=== PATIENT | female | born 1955 | race Caucasian/White ===

== ENCOUNTER 2016-10-02 14:08 | Emergency (ER) | payer MEDICAID ==
[~2016-10-02] VITALS: Ht 160 cm; Wt 68.0 kg
[~2016-10-02 14:08] MED LIST: BP MEDS; TRAZ-147
[2016-10-02] MEDS ORDERED: KETOROLAC TROMETHAMINE INJ 30 MG/ML VIAL ONE (14:45)
[2016-10-02] MEDS ORDERED: CYCLOBENZAPRINE 10 MG TABLET ONE (14:45)
[2016-10-02] MEDS ORDERED: CYCLOBENZAPRINE 10 MG TABLET PO ONE (15:00)
[2016-10-02] MEDS ORDERED: KETOROLAC TROMETHAMINE INJ 30 MG/ML VIAL IM ONE (15:00)
[2016-10-02 16:07] VITALS: BP 112/70
== END 2016-10-02 16:08 | disposition home or self-care (01) ==
LOC: ER 14:09
DX: R07.89 Other chest pain (principal); F41.9 Anxiety disorder, unspecified; M79.1 Myalgia; K21.9 Gastro-esophageal reflux disease without esophagitis; Z88.8 Allergy status to other drugs, medicaments and biological substances; Z88.2 Allergy status to sulfonamides; F17.210 Nicotine dependence, cigarettes, uncomplicated
CPT/HCPCS: 71010; 93005; 99285; A4606; J1885; Z7610

== ENCOUNTER 2017-08-01 13:36 | Emergency (ER) | payer MEDICAID ==
[~2017-08-01] VITALS: Ht 162.6 cm; Wt 54.4 kg
--- NOTE | 2017-08-01 13:40 | NUR ---
[id number] FROM [facility] FOR ANXIETY, PT IS COMPLAINING OF WEAKNESS, NAD NOTED, VSS, RESP EVEN AND UNLABORED. PT PUT ON HOSPITAL GOWN AND MONITOR, WAITNG FOR MD SADLER.
[2017-08-01 14:20] LABS: BASOPHILS % (AUTO) 0.4 % (0.0-2.0); EOSINOPHILS # (AUTO) 0.1 /CMM (0.0-0.7); EOSINOPHILS % (AUTO) 1.3 % (0.0-6.0); HEMATOCRIT 40 % (33-45); HEMOGLOBIN 13.5 g/dL (11.5-14.8); LYMPHOCYTES # (AUTO) 1.1 /CMM (0.8-4.8); LYMPHOCYTES % (AUTO) 17.7 % (20.0-44.0); MEAN CORPUSCULAR HEMOGLOBIN 33 PG (26.0-33.0); MEAN CORPUSCULAR HGB CONC 34 g/dl (31.0-36.0); MEAN CORPUSCULAR VOLUME 100 fL (82-100); MONOCYTES # (AUTO) 0.5 /CMM (0.1-1.30); MONOCYTES % (AUTO) 8.8 % (2.0-12.0); NEUTROPHILS # (AUTO) 4.5 /CMM (1.8-8.9); NEUTROPHILS % (AUTO) 71.8 % (43.0-81.0); PLATELET COUNT (AUTO) 246 /CMM (150-450); RDW COEFFICIENT OF VARIATION 11.1 (11.5-15.0); RED BLOOD CELL COUNT(AUTO) 4.04 MIL/uL (4.0-5.2); WHITE BLOOD COUNT (AUTO) 6.2 K/uL (4.3-11.0)
[2017-08-01 14:30] LABS: CALCIUM, SERUM 9.8 mg/dL (8.5-10.1); CARBON DIOXIDE 29 mmol/L (21-32); CHLORIDE 99 mmol/L (98-107); GLUCOSE 102 mg/dL (74-106); POTASSIUM 3.6 mmol/L (3.5-5.1); SODIUM SERUM 139 mmol/L (136-145); UREA NITROGEN, BLOOD 26 mg/dL (7-18)
[2017-08-01 14:35] LABS: ALANINE AMINOTRANSFERASE 42 U/L (12-78); ALBUMIN 4.4 g/dL (3.4-5.0); ALCOHOL, BLOOD < 3 mg/dL (0-0); ALKALINE PHOSPHATASE 67 U/L (46-116); ASPARTATE AMINOTRANSFERASE 50 U/L (15-37); BILIRUBIN,DIRECT 0.4 mg/dL (0.0-0.2); BILIRUBIN,TOTAL 0.9 mg/dL (0.2-1.0); TOTAL PROTEIN, SERUM 8.3 g/dL (6.4-8.2)
[2017-08-01 14:36] LABS: ACETAMINOPHEN < 2 ug/ml (10-30); SALICYLATE 0.2 mg/dL (2.8-20.0)
--- NOTE | 2017-08-01 15:44 | NUR ---
LUNCH AT BS
[2017-08-01 16:00] LABS: APPEARANCE,URINE Clear (CLEAR); BILIRUBIN,URINE SMALL (NEGATIVE); BLOOD, URINE Trace-intact Ery/uL (NEGATIVE); COLOR,URINE Yellow (YELLOW); KETONES,URINE 15 (NEGATIVE); LEUKOCYTE ESTERASE ,URINE Small (NEGATIVE); NITRITE, URINE Negative (NEGATIVE); PROTEIN,URINE Trace mg/dl (NEGATIVE); UGLUCOSE Negative (NEGATIVE)
[2017-08-01 16:11] LABS: BACTERIA,URINE Few /HPF (None Seen); MUCUS,URINE Few /LPF (None Seen); SQUAMOUS EPITHELIAL CELL,UR Few /HPF (None Seen)
--- NOTE | 2017-08-01 17:22 | NUR ---
CALLED [facility] FOR PSYCH EVAL ETA 1 HOUR
[2017-08-01 18:31] VITALS: BP 133/82
--- NOTE | 2017-08-01 18:32 | NUR ---
Patient discharged to home in stable condition. Written and verbal after care instructions given. Patient verbalizes understanding of instruction.
== END 2017-08-01 18:32 | disposition home or self-care (01) ==
LOC: ER 13:39
DX: N39.0 Urinary tract infection, site not specified (principal); F41.9 Anxiety disorder, unspecified; R56.9 Unspecified convulsions; I10 Essential (primary) hypertension; K21.9 Gastro-esophageal reflux disease without esophagitis; F32.9 Major depressive disorder, single episode, unspecified; F17.200 Nicotine dependence, unspecified, uncomplicated; Z88.2 Allergy status to sulfonamides; Z88.1 Allergy status to other antibiotic agents; Z88.8 Allergy status to other drugs, medicaments and biological substances
CPT/HCPCS: 36415; 80048; 80076; 80305; 80329; 81001; 85025; 87086; 93005; 99285; A4606; G0480 ×2; Z7610; 81000-TC

== ENCOUNTER 2018-04-24 23:19 | Emergency (ER) | payer MEDICAID, OTHER ==
[~2018-04-24] VITALS: Ht 162.6 cm; Wt 54.4 kg
[~2018-04-24 23:19] MED LIST changes: -TRAZ-147; +TRAZ-214
--- NOTE | 2018-04-24 23:19 | NUR ---
FOUND AT [facility] CALLED BY BYSTANDER FOR [facility], C/O SOB X2 DAYS. PT IS NOTED ANXIOUS AND NOT COOPERATING WITH QUESTIONING. VSS NO ACUTE DISTRESS AT THIS TIME. DISPITE C/O SOB PT HAS BREATHING RATE WNL WITH ADEQUATE CHEST RISE/FALL. SKIN IS INTACT BUT NOTED WITH MANY TAPE PHAN FROM [facility]. WILL CONTINUE TO MONITOR FOR ANY CHANGES DURING THE SHIFT.
--- NOTE | 2018-04-24 23:20 | NUR ---
ER MD BOYD AT BEDSIDE FOR EVAL
[2018-04-24] MEDS ORDERED: LORAZEPAM INJ 2 MG/ML VIAL ONE (23:49)
[2018-04-25] MEDS ORDERED: LORAZEPAM INJ 2 MG/ML VIAL IM ONE
--- NOTE | 2018-04-25 00:04 | NUR ---
URINE/BLOOD SENT TO LAB WITH AGRISCIENCE TEACHER
[2018-04-25 00:31] LABS: APPEARANCE,URINE SL CLOUDY (CLEAR); BILIRUBIN,URINE 1+ (NEGATIVE); BLOOD, URINE NEGATIVE Ery/uL (NEGATIVE); COLOR,URINE DARK YELLO (YELLOW); KETONES,URINE 1+ (NEGATIVE); LEUKOCYTE ESTERASE ,URINE TRACE (NEGATIVE); NITRITE, URINE NEGATIVE (NEGATIVE); PROTEIN,URINE 1+ mg/dl (NEGATIVE); UGLUCOSE NEGATIVE (NEGATIVE)
[2018-04-25 00:40] LABS: BASOPHILS % (AUTO) 0.4 % (0.0-2.0); CALCIUM, SERUM 8.8 mg/dL (8.5-10.1); CARBON DIOXIDE 21 mmol/L (21-32); CHLORIDE 104 mmol/L (98-107); CREATININE 1.1 mg/dL (0.6-1.3); GLUCOSE 135 mg/dL (74-106); HEMATOCRIT 39 % (33-45); HEMOGLOBIN 12.8 g/dL (11.5-14.8); LYMPHOCYTES # (AUTO) 1.4 /CMM (0.8-4.8); MEAN CORPUSCULAR HEMOGLOBIN 34 PG (26.0-33.0); MEAN CORPUSCULAR HGB CONC 33 g/dl (31.0-36.0); MEAN CORPUSCULAR VOLUME 101 fL (82-100); MONOCYTES # (AUTO) 0.6 /CMM (0.1-1.30); MONOCYTES % (AUTO) 10.1 % (2.0-12.0); NEUTROPHILS # (AUTO) 3.9 /CMM (1.8-8.9); NEUTROPHILS % (AUTO) 64.5 % (43.0-81.0); PLATELET COUNT (AUTO) 208 /CMM (150-450); POTASSIUM 3.4 mmol/L (3.5-5.1); RDW COEFFICIENT OF VARIATION 12.5 (11.5-15.0); RED BLOOD CELL COUNT(AUTO) 3.82 MIL/uL (4.0-5.2); SODIUM SERUM 140 mmol/L (136-145); UREA NITROGEN, BLOOD 15 mg/dL (7-18); WHITE BLOOD COUNT (AUTO) 6.1 K/uL (4.3-11.0)
[2018-04-25 00:42] LABS: RBC,URINE 0-2 /HPF (0-2)
[2018-04-25 00:43] LABS: BACTERIA,URINE Few /HPF (None Seen); MUCUS,URINE Moderate /LPF (None Seen); SQUAMOUS EPITHELIAL CELL,UR Moderate /HPF (None Seen); WBC,URINE 21-50 /HPF (0-3)
[2018-04-25 00:50] LABS: ALANINE AMINOTRANSFERASE 45 U/L (12-78); ALBUMIN 3.7 g/dL (3.4-5.0); ALCOHOL, BLOOD < 3 mg/dL (0-0); ALKALINE PHOSPHATASE 95 U/L (46-116); ASPARTATE AMINOTRANSFERASE 50 U/L (15-37); BILIRUBIN,DIRECT 0.2 mg/dL (0.0-0.2); BILIRUBIN,TOTAL 0.6 mg/dL (0.2-1.0); TOTAL PROTEIN, SERUM 6.5 g/dL (6.4-8.2)
[2018-04-25 00:51] LABS: ACETAMINOPHEN < 0 ug/ml (10-30); SALICYLATE 1.2 mg/dL (2.8-20.0)
--- NOTE | 2018-04-25 02:03 | NUR ---
PT NOW A/OX3. ATTEMPTED TO CALL PT'S JEAN-PIERRE HOWE AT [phone], NO ANSWER, LEFT A VOICEMAIL ASKING FOR CALL BACK. Addendum: 04/25/18 at 0212 by HFOX PT IS ABLE TO ANSWER ORIENTATION QUESTIONS CORRECTLY HOWEVER SHE KEEPS REPEATING "WHAT AM I DOING HERE" DESPITE HAVING THE SITUATION EXPLAINED MULTIPLE TIMES.
[2018-04-25 03:32] VITALS: BP 130/78
== END 2018-04-25 03:33 | disposition home or self-care (01) ==
LOC: ER 23:20
DX: F19.10 Other psychoactive substance abuse, uncomplicated (principal); F12.10 Cannabis abuse, uncomplicated; F13.20 Sedative, hypnotic or anxiolytic dependence, uncomplicated; G89.29 Other chronic pain; M54.2 Cervicalgia; M54.5 Low back pain; I10 Essential (primary) hypertension; K21.9 Gastro-esophageal reflux disease without esophagitis; F41.9 Anxiety disorder, unspecified; F32.9 Major depressive disorder, single episode, unspecified; F17.200 Nicotine dependence, unspecified, uncomplicated; Z88.8 Allergy status to other drugs, medicaments and biological substances; Z88.6 Allergy status to analgesic agent; Z88.2 Allergy status to sulfonamides; Z88.1 Allergy status to other antibiotic agents; Z60.2 Problems related to living alone
CPT/HCPCS: 36415; 80048; 80076; 80305; 80329; 81001; 85025; 87086; 96372; 99284; A4606 ×2; A6402; G0480 ×2; J2060; Z7610 ×2; 81000-TC

== ENCOUNTER 2019-01-05 15:18 | Emergency (ER) | payer MEDICAID ==
[~2019-01-05] VITALS: Ht 160 cm; Wt 73.9 kg
[2019-01-05] MEDS ORDERED: TRAMADOL HCL 50 MG TABLET PO ONE (16:30)
--- NOTE | 2019-01-05 16:30 | NUR ---
PT WAS SLEEPING COMFORTABLY WITH NO S/S OF PAIN OR DISTRESS. PT REC'D MEDICATION ORDERED.
[2019-01-05] MEDS ORDERED: TRAMADOL HCL 50 MG TABLET ONE (16:33)
--- NOTE | 2019-01-05 16:35 | NUR ---
XRAY IN PROGRESS AT THE BEDSIDE.
--- NOTE | 2019-01-05 17:13 | NUR ---
Patient discharged to home in stable condition. Written and verbal after care instructions given. Patient verbalizes understanding of instruction. DR RICHEY WAS AT THE BEDSIDE SPEAKING TO THE PT RE: DISCHARGE AND XRAY FINDINGS. VSS.
[2019-01-05 17:15] VITALS: BP 134/93
== END 2019-01-05 17:15 | disposition home or self-care (01) ==
LOC: ER 15:29
DX: S43.491A Other sprain of right shoulder joint, initial encounter (principal); M54.2 Cervicalgia; M54.6 Pain in thoracic spine; G89.29 Other chronic pain; I10 Essential (primary) hypertension; K21.9 Gastro-esophageal reflux disease without esophagitis; F32.9 Major depressive disorder, single episode, unspecified; F41.9 Anxiety disorder, unspecified; F17.200 Nicotine dependence, unspecified, uncomplicated; Z98.890 Other specified postprocedural states; Z60.2 Problems related to living alone; Z88.2 Allergy status to sulfonamides; Z88.1 Allergy status to other antibiotic agents; Z88.9 Allergy status to unspecified drugs, medicaments and biological substances; W01.0XXA Fall on same level from slipping, tripping and stumbling without subsequent striking against object, initial encounter; Y93.89 Activity, other specified; Y92.002 Bathroom of unspecified non-institutional (private) residence as the place of occurrence of the external cause; Y99.8 Other external cause status
CPT/HCPCS: 72040-TC; 73030-TC

== ENCOUNTER 2021-11-30 17:42 | Emergency (ER) | payer MEDICAID ==
[~2021-11-30] VITALS: Ht 160 cm; Wt 68.0 kg
[~2021-11-30 17:42] MED LIST changes: -TRAZ-214; +TRAZ-257
--- NOTE | 2021-11-30 18:01 | NUR ---
c/o left shoulder pain s/p fall 2 days ago and urinary frequency
[2021-11-30 18:02] VITALS: BP 132/87
[2021-11-30] MEDS ORDERED: CYCLOBENZAPRINE 10 MG TABLET PO ONE (18:30)
[2021-11-30] MEDS ORDERED: KETOROLAC TROMETHAMINE INJ 30 MG/ML VIAL IM ONE (18:30)
[2021-11-30] MEDS ORDERED: CYCLOBENZAPRINE 10 MG TABLET ONE (18:33)
[2021-11-30] MEDS ORDERED: KETOROLAC TROMETHAMINE INJ 30 MG/ML VIAL ONE (18:33)
[2021-11-30] MEDS ORDERED: IBUP-1957 PO (20:32)
[2021-11-30] MEDS ORDERED: CEPH250C PO (21:05)
== END 2021-11-30 21:27 | disposition home or self-care (01) ==
LOC: ER 17:42
DX: M19.042 Primary osteoarthritis, left hand (principal); I10 Essential (primary) hypertension; K21.9 Gastro-esophageal reflux disease without esophagitis; F32.A Depression, unspecified; F41.9 Anxiety disorder, unspecified; F17.200 Nicotine dependence, unspecified, uncomplicated; Z98.890 Other specified postprocedural states; Z88.8 Allergy status to other drugs, medicaments and biological substances; Z88.2 Allergy status to sulfonamides; Z88.1 Allergy status to other antibiotic agents; Z60.2 Problems related to living alone; Z79.899 Other long term (current) drug therapy
CPT/HCPCS: 73090; 96372; 99283; J1885

== ENCOUNTER 2022-11-25 15:27 | Emergency (ER) | payer MEDICAID ==
[~2022-11-25] VITALS: Ht 160 cm; Wt 68.5 kg
[~2022-11-25 15:27] MED LIST changes: +CEPH250C PO; +IBUP-1957 PO
--- NOTE | 2022-11-25 15:30 | NUR ---
RECEIVED PT CAME BY REJI C/O SADE AWAKE CONFUSED RESPIRATION SPONT AND EASY
[2022-11-25] MEDS ORDERED: IV NS 0.9% 1,000 ML BAG IV ONE (16:00)
--- NOTE | 2022-11-25 16:00 | NUR ---
BLOOD DROW BY LAB TACH
[2022-11-25 16:10] LABS: BASOPHILS # (AUTO) 0.1 K/uL (0.0-0.2); BASOPHILS % (AUTO) 1.3 % (0.0-2.0); EOSINOPHILS % (AUTO) 1.7 % (0.0-6.0); HEMATOCRIT 35 % (33-45); LYMPHOCYTES # (AUTO) 2.1 K/uL (0.8-4.8); LYMPHOCYTES % (AUTO) 19.4 % (20.0-44.0); MEAN CORPUSCULAR HGB CONC 34 g/dl (31.0-36.0); MEAN CORPUSCULAR VOLUME 94 fL (82-100); MONOCYTES # (AUTO) 0.8 K/uL (0.1-1.30); MONOCYTES % (AUTO) 7.7 % (2.0-12.0); NEUTROPHILS # (AUTO) 7.5 K/uL (1.8-8.9); NEUTROPHILS % (AUTO) 69.9 % (43.0-81.0); PLATELET COUNT (AUTO) 316 K/uL (150-450); RED BLOOD CELL COUNT(AUTO) 3.71 MIL/uL (4.0-5.2); WHITE BLOOD COUNT (AUTO) 10.8 K/uL (4.3-11.0)
[2022-11-25 16:19] LABS: CALCIUM, SERUM 9.6 mg/dL (8.5-10.1); CARBON DIOXIDE 27 mmol/L (21-32); CHLORIDE 104 mmol/L (98-107); CREATININE 0.6 mg/dL (0.6-1.3); GLUCOSE 107 mg/dL (74-106); SODIUM SERUM 137 mmol/L (136-145); UREA NITROGEN, BLOOD 16 mg/dL (7-18)
[2022-11-25 16:32] LABS: ALANINE AMINOTRANSFERASE 31 U/L (12-78); ALBUMIN 3.4 g/dL (3.4-5.0); ALKALINE PHOSPHATASE 119 U/L (46-116); ASPARTATE AMINOTRANSFERASE 52 U/L (15-37); BILIRUBIN,TOTAL 1.7 mg/dL (0.2-1.0); TOTAL PROTEIN, SERUM 7.2 g/dL (6.4-8.2)
--- NOTE | 2022-11-25 16:45 | NUR ---
TO CT SCAN
[2022-11-25] MEDS ORDERED: POTASSIUM CHLORIDE 20 MEQ POWDER PACKET PO ONE (17:00)
--- NOTE | 2022-11-25 17:00 | NUR ---
COVID SWAB SENT TO LAB
[2022-11-25 17:04] LABS: BAND % (MANUAL) 4 % (0.0-5.0); LYMPHOCYTES % (MANUAL) 19 % (16-48); MONOCYTES % (MANUAL) 3 % (0-11.0); NEUTROPHILS % (MANUAL) 73 (42-76); REACTIVE LYMPHOCYTES 1 % (0-0)
[2022-11-25] MEDS ORDERED: POTASSIUM CHLORIDE 20 MEQ POWDER PACKET ONE (17:29)
--- NOTE | 2022-11-25 18:05 | NUR ---
REESTING AND ASLEEPY NO ACTIVE SZ
--- NOTE | 2022-11-25 19:27 | NUR ---
LYNDSEY HAND OFF CELI
--- NOTE | 2022-11-25 20:12 | NUR ---
SPOKE WITH [facility]ILL[facility] [place] CLERK FOR CLINICALS.
--- NOTE | 2022-11-25 22:24 | NUR ---
DR. NICOLE SPOKE WITH DR. EDWARDS FROM [facility]. PER DR. NICOLE, PT IS GOING TO BE ADMITTED DIRECTLY TO A SNF. NO NEED FOR IN PATIENT ADMISSION. [facility] CLINICAL INFORMATICS DIRECTOR WILL BE CALLING FOR SNF INFORMATION ONCE IT IS ARRANGED.
[2022-11-25] MEDS ORDERED: LEVETIRACETAM (500MG) 500 MG/5 ML VIAL IV ONE (22:35)
[2022-11-25] MEDS: LEVETIRACETAM (500MG) 1,000 MG in IV NS 0.9% 100 ML IV SCH (22:41)
--- NOTE | 2022-11-26 02:29 | NUR ---
LARGE INCONTINENT URINE NOTED. CLEANED PT AND KEPT CLEAN & DRY. SAFETY MEASURES IN PLACE.
--- NOTE | 2022-11-26 03:37 | NUR ---
PROVIDED PT WITH SNACKS AND WATER; TOLERATING WELL.
--- NOTE | 2022-11-26 05:43 | NUR ---
PT SLEEPING. RR EVEN AND NON LABORED. ALL NEEDS MET AT THIS TIME. VSS. SAFETY MEASURES IN PLACE.
--- NOTE | 2022-11-26 07:14 | NUR ---
UPDATED [facility] TECH REGARDING PT'S WISHES. PT DOES NOT WANT TO BE PLACED IN SENIOR CARE FACILITY.
--- NOTE | 2022-11-26 07:15 | NUR ---
RECEIVED PT FROM [facility] PT ASLEEPY NO SOB WATING FOR TRANSFER FOR CM AND SW
--- NOTE | 2022-11-26 08:30 | NUR ---
HERE see and spook with pt and dr. boland
--- NOTE | 2022-11-26 08:53 | NUR ---
PHILLY ESPINOSA, CALLED REGARDING PT. 3 IS [phone]. FAXED OVER CLINICALS & FACESHEET TO [phone]
[2022-11-26] MEDS: LEVETIRACETAM (500MG) 1,000 MG in IV NS 0.9% 100 ML IV SCH (09:55)
--- NOTE | 2022-11-26 10:07 | NUR ---
JESSICA -" [facility] " [phone]
[2022-11-26] MEDS ORDERED: BUSP5TAB3 PO (11:47)
[2022-11-26] MEDS ORDERED: LEVE100023 PO (11:47)
[2022-11-26] MEDS ORDERED: QUET25TA PO (11:47)
[2022-11-26] MEDS ORDERED: APIX5TAB PO (11:47)
[2022-11-26] MEDS ORDERED: AMLO-212 PO (11:47)
--- NOTE | 2022-11-26 12:08 | NUR ---
FRANCISCA MOHAN CALLED GIVE PHON NUMBER RONALD ( CARLEY)
--- NOTE | 2022-11-26 12:23 | NUR ---
CALLED CARLEY FLOWER WITH HIM NOT ABLE TO TAKE CARE OF HERE HE IS DIABLE BY HIMSELF HIS ADDRESS [address] [place] [address] [place] [id number] [place] [address] HE REQUSTED TO SENT PT TO SNF
--- NOTE | 2022-11-26 13:22 | NUR ---
CALLED [facility] ROBYN ESPINOSA [phone] FOR UPDATE. FAXED OVER CLINICALS TO [phone], ROBYN WILL ARRANGE TRANSFER TO SNF.
--- NOTE | 2022-11-26 14:02 | NUR ---
FRANCISCA CARLSON CALLED AND INFORMED THAT PT NEEDS PT EVAL BEFORE SNF TRANSFER PROCESS BEGINS. NEW CALLBACK NUMBER FOR ROBYN BOLAND, TAKING OVER IS [phone]
--- NOTE | 2022-11-26 14:33 | NUR ---
SPOKE WITH MUMTAZ MELARA CM FROM [facility] [phone].
--- NOTE | 2022-11-26 14:40 | NUR ---
ROAD TEST DONE AT BED SIDE PT UNABLE TO AMPLET. ONLY WITH ASSISST VERY HIGH RISK FALL
--- NOTE | 2022-11-26 16:35 | NUR ---
SCHUYLER [phone] CALLED FOR NURSING NOTE ABOUT ROAD. NEEDS TO BE FAXED
--- NOTE | 2022-11-26 17:00 | NUR ---
FAXED NURSING NOTE
--- NOTE | 2022-11-26 19:33 | NUR ---
HAND OFF CHUNG SOLORIO
--- NOTE | 2022-11-26 21:00 | NUR ---
PT IS GOING TO HEART TO HEART [facility]. [address] [place], [place] CALL [phone] FOR REPORT. LOOK FOR THE CHARGE NURSE WILL CALL BACK FOR TRANSPORT ETA
--- NOTE | 2022-11-26 21:40 | NUR ---
going to room 3
--- NOTE | 2022-11-26 21:43 | NUR ---
ambulance authorization # [id number] call back for conirmation of transport to [phone] Margie clinical case manager
--- NOTE | 2022-11-26 21:52 | NUR ---
apa called eta 20-25 min
--- NOTE | 2022-11-26 21:58 | NUR ---
REPORT GIVEN TO KATARINA CHARGE NURSE AT HEART TO HEART [facility]
--- NOTE | 2022-11-26 23:08 | NUR ---
TAKEN BY AMBULANCE TO HEART TO HEART [facility]
[2022-11-26 23:09] VITALS: BP 136/81
== END 2022-11-26 23:10 ==
LOC: ER 15:44
DX: F19.10 Other psychoactive substance abuse, uncomplicated (principal); R56.9 Unspecified convulsions; I10 Essential (primary) hypertension; K21.9 Gastro-esophageal reflux disease without esophagitis; G89.29 Other chronic pain; F32.A Depression, unspecified; F41.9 Anxiety disorder, unspecified; F17.200 Nicotine dependence, unspecified, uncomplicated; Z20.822 Contact with and (suspected) exposure to COVID-19; Z88.8 Allergy status to other drugs, medicaments and biological substances
CPT/HCPCS: 99285; 96365; 70450; 71045; 96361; 87426; 93005; 85025; 80048; 80076; 36415; 84484; 87081; 83880; 82962; 96366; 85007; J7030 ×2; J1953 ×2; C9803

== ENCOUNTER 2023-05-02 21:06 | Emergency (ER) | payer MEDICAID ==
[~2023-05-02] VITALS: Ht 160 cm; Wt 68.0 kg
[~2023-05-02 21:06] MED LIST changes: +AMLO-212 PO; +APIX5TAB PO; -BP MEDS; +BUSP5TAB3 PO; -CEPH250C PO; +DIAZ5TAB4 PO; -IBUP-1957 PO; +LEVE100023 PO; -TRAZ-257
[2023-05-02 21:26] VITALS: O2SAT 98
[2023-05-02] MEDS ORDERED: ALBUTEROL FS 2.5 MG/3 ML VIAL.NEB ONE (21:32)
[2023-05-02] MEDS ORDERED: IPRATROPIUM NEB FS 0.5 MG/2.5 ML AMPUL.NEB ONE (21:32)
[2023-05-02 21:38] VITALS: O2SAT 99
[2023-05-02 21:41] VITALS: O2SAT 99
[2023-05-02 21:55] VITALS: O2SAT 99
[2023-05-02] MEDS ORDERED: predniSONE 20 MG TABLET PO ONE (22:00)
[2023-05-02] MEDS ORDERED: ALBUTEROL FS 2.5 MG/3 ML VIAL.NEB NEB ONE (22:00)
[2023-05-02] MEDS ORDERED: predniSONE 20 MG TABLET ONE (22:00)
[2023-05-02] MEDS ORDERED: IPRATROPIUM NEB FS 0.5 MG/2.5 ML AMPUL.NEB NEB ONE (22:00)
[2023-05-02 22:03] LABS: BASOPHILS # (AUTO) 0.1 K/uL (0.0-0.2); BASOPHILS % (AUTO) 0.8 % (0.0-2.0); EOSINOPHILS # (AUTO) 0.3 K/uL (0.0-0.7); EOSINOPHILS % (AUTO) 3.2 % (0.0-6.0); HEMATOCRIT 42 % (33-45); HEMOGLOBIN 14.5 g/dL (11.5-14.8); LYMPHOCYTES % (AUTO) 21.2 % (20.0-44.0); MEAN CORPUSCULAR HEMOGLOBIN 33 PG (26.0-33.0); MEAN CORPUSCULAR HGB CONC 34 g/dl (31.0-36.0); MEAN CORPUSCULAR VOLUME 96 fL (82-100); MONOCYTES # (AUTO) 0.8 K/uL (0.1-1.30); MONOCYTES % (AUTO) 8.4 % (2.0-12.0); NEUTROPHILS # (AUTO) 6.2 K/uL (1.8-8.9); NEUTROPHILS % (AUTO) 66.4 % (43.0-81.0); PLATELET COUNT (AUTO) 197 K/uL (150-450); RED BLOOD CELL COUNT(AUTO) 4.43 MIL/uL (4.0-5.2); RED CELL DISTRIBUTION WIDTH 12.3 % (11.5-15.0); WHITE BLOOD COUNT (AUTO) 9.3 K/uL (4.3-11.0)
[2023-05-02 22:10] LABS: CALCIUM, SERUM 9.5 mg/dL (8.5-10.1); CREATININE 0.7 mg/dL (0.6-1.3); POTASSIUM 3.9 mmol/L (3.5-5.1)
[2023-05-02] MEDS ORDERED: KETOROLAC TROMETHAMINE INJ 30 MG/ML VIAL IV ONE (23:00)
[2023-05-02] MEDS ORDERED: KETOROLAC TROMETHAMINE 15 MG/ML VIAL ONE (23:02)
[2023-05-02] MEDS ORDERED: PRED50TA PO (23:05)
[2023-05-02] MEDS ORDERED: ALBU8.5H8 INH (23:05)
[2023-05-02 23:25] VITALS: BP 146/76; TEMP 98.7; O2SAT 99
== END 2023-05-02 23:25 | disposition home or self-care (01) ==
LOC: ER 21:08
DX: J44.1 Chronic obstructive pulmonary disease with (acute) exacerbation (principal); G40.909 Epilepsy, unspecified, not intractable, without status epilepticus; I11.0 Hypertensive heart disease with heart failure; I50.9 Heart failure, unspecified; K21.9 Gastro-esophageal reflux disease without esophagitis; F32.A Depression, unspecified; F41.9 Anxiety disorder, unspecified; F17.200 Nicotine dependence, unspecified, uncomplicated; Z60.2 Problems related to living alone; Z79.899 Other long term (current) drug therapy; Z98.890 Other specified postprocedural states; Z88.2 Allergy status to sulfonamides; Z88.1 Allergy status to other antibiotic agents
CPT/HCPCS: 99285; 96374; 71045; 93005; 85025; 80048; 36415; 94640 ×2; J7512; J1885

== ENCOUNTER 2023-06-07 14:46 | Inpatient (IN) | payer MEDICAID ==
[~2023-06-07] VITALS: Ht 160 cm; Wt 65.8 kg
[~2023-06-07 14:46] MED LIST changes: +ALBU8.5H8 INH; +PRED50TA PO
[2023-06-07] MEDS ORDERED: ALBUTEROL FS 2.5 MG/3 ML VIAL.NEB CONTNEB ONE (15:00)
[2023-06-07] MEDS ORDERED: IPRATROPIUM NEB FS 0.5 MG/2.5 ML AMPUL.NEB NEB ONE (15:00)
[2023-06-07] MEDS ORDERED: predniSONE 20 MG TABLET PO ONE (15:00)
[2023-06-07] MEDS ORDERED: predniSONE 20 MG TABLET ONE (15:20)
[2023-06-07] MEDS ORDERED: Magnesium 1GM/D5W 100ML PREMIX 100 ML IV ONE ×2 (15:21→17:11)
[2023-06-07] MEDS ORDERED: ALBUTEROL FS 2.5 MG/3 ML VIAL.NEB ONE (15:26)
[2023-06-07] MEDS ORDERED: IPRATROPIUM NEB FS 0.5 MG/2.5 ML AMPUL.NEB ONE (15:26)
[2023-06-07 15:29] LABS: BASOPHILS # (AUTO) 0.1 K/uL (0.0-0.2); BASOPHILS % (AUTO) 0.7 % (0.0-2.0); EOSINOPHILS # (AUTO) 0.3 K/uL (0.0-0.7); EOSINOPHILS % (AUTO) 3.1 % (0.0-6.0); HEMATOCRIT 41 % (33-45); LYMPHOCYTES % (AUTO) 22.7 % (20.0-44.0); MEAN CORPUSCULAR HEMOGLOBIN 33 PG (26.0-33.0); MEAN CORPUSCULAR HGB CONC 34 g/dl (31.0-36.0); MEAN CORPUSCULAR VOLUME 96 fL (82-100); MONOCYTES # (AUTO) 0.8 K/uL (0.1-1.30); MONOCYTES % (AUTO) 8.9 % (2.0-12.0); NEUTROPHILS # (AUTO) 5.8 K/uL (1.8-8.9); NEUTROPHILS % (AUTO) 64.6 % (43.0-81.0); PLATELET COUNT (AUTO) 169 K/uL (150-450); RED BLOOD CELL COUNT(AUTO) 4.22 MIL/uL (4.0-5.2); RED CELL DISTRIBUTION WIDTH 13.2 % (11.5-15.0)
[2023-06-07] MEDS ORDERED: Magnesium 1GM/D5W 100ML PREMIX 200 ML IV ONE (15:30)
[2023-06-07 15:34] VITALS: O2SAT 98
[2023-06-07 15:41] LABS: CALCIUM, SERUM 9.3 mg/dL (8.5-10.1); CARBON DIOXIDE 25 mmol/L (21-32); CHLORIDE 106 mmol/L (98-107); CREATININE 0.5 mg/dL (0.6-1.3); GLUCOSE 116 mg/dL (74-106); POTASSIUM 4.1 mmol/L (3.5-5.1); SODIUM SERUM 141 mmol/L (136-145); UREA NITROGEN, BLOOD 16 mg/dL (7-18)
[2023-06-07 15:47] LABS: ALANINE AMINOTRANSFERASE 57 U/L (12-78); ALBUMIN 3.1 g/dL (3.4-5.0); ALKALINE PHOSPHATASE 97 U/L (46-116); ASPARTATE AMINOTRANSFERASE 55 U/L (15-37); BILIRUBIN,DIRECT 0.4 mg/dL (0.0-0.2); BILIRUBIN,TOTAL 0.8 mg/dL (0.2-1.0); TOTAL PROTEIN, SERUM 6.2 g/dL (6.4-8.2)
[2023-06-07 15:55] VITALS: O2SAT 100
[2023-06-07] MEDS ORDERED: ALBU8.5H8 IH (16:02)
[2023-06-07] MEDS ORDERED: ALBU2.5V38 IH (16:02)
[2023-06-07] MEDS ORDERED: HYDR25TA4 PO (16:02)
[2023-06-07] MEDS ORDERED: HYDR-500 PO (16:02)
[2023-06-07] MEDS ORDERED: BENZ1TAB7 PO (16:02)
[2023-06-07] MEDS ORDERED: PALI6TAB PO (16:02)
[2023-06-07] MEDS ORDERED: BUPR8TAB4 SL (16:02)
[2023-06-07] MEDS ORDERED: FLUT1DIS3 IH (16:02)
[2023-06-07] MEDS ORDERED: NICO-760 TD (16:02)
[2023-06-07] MEDS ORDERED: CETI-467 PO (16:02)
[2023-06-07] MEDS ORDERED: DIAZ5TAB4 PO (16:02)
[2023-06-07] MEDS ORDERED: IPRA12.9 IH (16:02)
[2023-06-07] MEDS ORDERED: PRED50TA PO (16:02)
[2023-06-07 20:30] VITALS: BP 101/65; TEMP 97; O2SAT 97
[2023-06-07] MEDS ORDERED: HYDROCODONE/APAP 10/325MG TABLET PO PRN (21:00)
[2023-06-07] MEDS ORDERED: ONDANSETRON HCL/PF 4 MG/2 ML VIAL IV PRN (21:00)
[2023-06-07] MEDS ORDERED: ACETAMINOPHEN 325 MG TABLET PO PRN (21:00)
[2023-06-07] MEDS ORDERED: HYDROCODONE/APAP 5/325MG TABLET PO PRN (21:00)
[2023-06-07] MEDS: methylPREDNISolone SOD SUCC 40 MG/ML VIAL IV SCH (21:23)
[2023-06-07] MEDS: ENOXAPARIN SODIUM 40 MG/0.4 ML DISP.SYRIN SQ SCH (21:28)
[2023-06-07] MEDS: IPRATROPIUM NEB FS 0.5 MG/2.5 ML AMPUL.NEB NEB SCH ×2 (22:00→23:51)
[2023-06-07 23:51] VITALS: O2SAT 98
[2023-06-08] VITALS (17 sets, daily range): BP systolic 126–129; BP diastolic 66–71; TEMP 97.4–98.3; O2SAT 94–100
[2023-06-08] MEDS: IPRATROPIUM NEB FS 0.5 MG/2.5 ML AMPUL.NEB NEB SCH ×6 (02:56→23:31)
[2023-06-08] MEDS: methylPREDNISolone SOD SUCC 40 MG/ML VIAL IV SCH (05:26)
[2023-06-08 07:34] LABS: CREATININE 0.7 mg/dL (0.6-1.3); POTASSIUM 4.7 mmol/L (3.5-5.1)
[2023-06-08 08:01] LABS: BASOPHILS % (AUTO) 0.1 % (0.0-2.0); HEMATOCRIT 41 % (33-45); HEMOGLOBIN 14.1 g/dL (11.5-14.8); LYMPHOCYTES # (AUTO) 0.7 K/uL (0.8-4.8); LYMPHOCYTES % (AUTO) 8.3 % (20.0-44.0); MEAN CORPUSCULAR HEMOGLOBIN 33 PG (26.0-33.0); MEAN CORPUSCULAR HGB CONC 35 g/dl (31.0-36.0); MEAN CORPUSCULAR VOLUME 97 fL (82-100); MONOCYTES # (AUTO) 0.2 K/uL (0.1-1.30); MONOCYTES % (AUTO) 1.9 % (2.0-12.0); NEUTROPHILS # (AUTO) 7.4 K/uL (1.8-8.9); NEUTROPHILS % (AUTO) 89.7 % (43.0-81.0); PLATELET COUNT (AUTO) 171 K/uL (150-450); RED BLOOD CELL COUNT(AUTO) 4.22 MIL/uL (4.0-5.2); RED CELL DISTRIBUTION WIDTH 13.4 % (11.5-15.0); WHITE BLOOD COUNT (AUTO) 8.2 K/uL (4.3-11.0)
[2023-06-08] MEDS ORDERED: ALPRAZOLAM 0.25 MG TABLET PO PRN (09:30)
[2023-06-08] MEDS ORDERED: LEVOFLOXACIN (250MG) 250 MG TABLET PO SCH (10:00)
[2023-06-08] MEDS: ALBUTEROL HALF STRENGTH 1.25 MG/3 ML VIAL.NEB NEB SCH ×4 (11:34→23:31)
[2023-06-08] MEDS: ENOXAPARIN SODIUM 40 MG/0.4 ML DISP.SYRIN SQ SCH (21:20)
[2023-06-09] VITALS (18 sets, daily range): BP systolic 127–154; BP diastolic 57–86; TEMP 97.6–98.6; O2SAT 92–100
[2023-06-09] MEDS: IPRATROPIUM NEB FS 0.5 MG/2.5 ML AMPUL.NEB NEB SCH ×6 (03:29→23:43)
[2023-06-09] MEDS: ALBUTEROL HALF STRENGTH 1.25 MG/3 ML VIAL.NEB NEB SCH ×6 (03:30→23:43)
[2023-06-09] MEDS: methylPREDNISolone SOD SUCC 40 MG/ML VIAL IV SCH (08:57)
[2023-06-09] MEDS: HYDROCHLOROTHIAZIDE 25 MG TABLET PO SCH (09:10)
[2023-06-09] MEDS: BENZTROPINE MESYLATE (1 MG) 1 MG TABLET PO SCH ×2 (09:10→16:41)
[2023-06-09] MEDS: cetrizine 10 MG TABLET PO SCH (09:10)
[2023-06-09] MEDS: AMOX/CLAVULANATE 875 MG TABLET PO SCH ×2 (09:10→20:51)
[2023-06-09 09:18] LABS: BASOPHILS % (AUTO) 0.4 % (0.0-2.0); EOSINOPHILS # (AUTO) 0.1 K/uL (0.0-0.7); EOSINOPHILS % (AUTO) 0.9 % (0.0-6.0); HEMATOCRIT 41 % (33-45); HEMOGLOBIN 13.7 g/dL (11.5-14.8); LYMPHOCYTES # (AUTO) 2.4 K/uL (0.8-4.8); LYMPHOCYTES % (AUTO) 22.9 % (20.0-44.0); MEAN CORPUSCULAR HEMOGLOBIN 33 PG (26.0-33.0); MEAN CORPUSCULAR HGB CONC 34 g/dl (31.0-36.0); MEAN CORPUSCULAR VOLUME 99 fL (82-100); MONOCYTES # (AUTO) 0.6 K/uL (0.1-1.30); MONOCYTES % (AUTO) 6.1 % (2.0-12.0); NEUTROPHILS # (AUTO) 7.3 K/uL (1.8-8.9); NEUTROPHILS % (AUTO) 69.7 % (43.0-81.0); PLATELET COUNT (AUTO) 151 K/uL (150-450); RED BLOOD CELL COUNT(AUTO) 4.14 MIL/uL (4.0-5.2); WHITE BLOOD COUNT (AUTO) 10.5 K/uL (4.3-11.0)
[2023-06-09] MEDS: PANTOPRAZOLE 40 MG TABLET.DR PO SCH (09:20)
[2023-06-09] MEDS: FLUTICASONE/VILANTEROL 1 EACH BLST.W.DEV IH SCH (09:20)
[2023-06-09 09:26] LABS: CALCIUM, SERUM 9.4 mg/dL (8.5-10.1); CREATININE 0.8 mg/dL (0.6-1.3); POTASSIUM 4.2 mmol/L (3.5-5.1)
[2023-06-09 10:56] LABS: LYMPHOCYTES % (MANUAL) 26 % (16-48); MONOCYTES % (MANUAL) 5 % (0-11.0); MYELOCYTES % 2 % (0-0); NEUTROPHILS % (MANUAL) 67 (42-76); PLATELET ESTIMATE ADEQUATE
[2023-06-09] MEDS: BUPRENORPHINE HCL 8 MG TAB.SUBL SL SCH ×2 (11:57→16:43)
[2023-06-09] MEDS: ENOXAPARIN SODIUM 40 MG/0.4 ML DISP.SYRIN SQ SCH (20:47)
[2023-06-09] MEDS ORDERED: DIAZEPAM 5 MG TABLET PO SCH (22:00)
[2023-06-10] VITALS (10 sets, daily range): BP systolic 124–141; BP diastolic 64–90; TEMP 97.5–97.9; O2SAT 95–99
[2023-06-10] MEDS: IPRATROPIUM NEB FS 0.5 MG/2.5 ML AMPUL.NEB NEB SCH ×4 (03:32→11:12)
[2023-06-10] MEDS: ALBUTEROL HALF STRENGTH 1.25 MG/3 ML VIAL.NEB NEB SCH ×4 (03:32→11:12)
[2023-06-10 06:55] LABS: BASOPHILS % (AUTO) 0.5 % (0.0-2.0); EOSINOPHILS # (AUTO) 0.1 K/uL (0.0-0.7); EOSINOPHILS % (AUTO) 1.4 % (0.0-6.0); HEMATOCRIT 41 % (33-45); HEMOGLOBIN 14.3 g/dL (11.5-14.8); LYMPHOCYTES # (AUTO) 1.5 K/uL (0.8-4.8); LYMPHOCYTES % (AUTO) 16.1 % (20.0-44.0); MEAN CORPUSCULAR HEMOGLOBIN 33 PG (26.0-33.0); MEAN CORPUSCULAR HGB CONC 35 g/dl (31.0-36.0); MEAN CORPUSCULAR VOLUME 96 fL (82-100); MONOCYTES # (AUTO) 0.8 K/uL (0.1-1.30); MONOCYTES % (AUTO) 8.9 % (2.0-12.0); NEUTROPHILS # (AUTO) 6.8 K/uL (1.8-8.9); NEUTROPHILS % (AUTO) 73.1 % (43.0-81.0); PLATELET COUNT (AUTO) 172 K/uL (150-450); RED CELL DISTRIBUTION WIDTH 13.9 % (11.5-15.0); WHITE BLOOD COUNT (AUTO) 9.3 K/uL (4.3-11.0)
[2023-06-10 07:17] LABS: CALCIUM, SERUM 9.3 mg/dL (8.5-10.1); CREATININE 0.9 mg/dL (0.6-1.3); POTASSIUM 3.9 mmol/L (3.5-5.1)
[2023-06-10] MEDS: PANTOPRAZOLE 40 MG TABLET.DR PO SCH (08:20)
[2023-06-10] MEDS: AMOX/CLAVULANATE 875 MG TABLET PO SCH (08:21)
[2023-06-10] MEDS: HYDROCHLOROTHIAZIDE 25 MG TABLET PO SCH (08:21)
[2023-06-10] MEDS: BENZTROPINE MESYLATE (1 MG) 1 MG TABLET PO SCH (08:21)
[2023-06-10] MEDS: methylPREDNISolone SOD SUCC 40 MG/ML VIAL IV SCH (08:22)
[2023-06-10] MEDS: cetrizine 10 MG TABLET PO SCH (08:22)
[2023-06-10] MEDS: BUPRENORPHINE HCL 8 MG TAB.SUBL SL SCH (08:22)
[2023-06-10] MEDS: FLUTICASONE/VILANTEROL 1 EACH BLST.W.DEV IH SCH (08:23)
[2023-06-10] MEDS ORDERED: ALPR0.25 PO (08:37)
[2023-06-10] MEDS ORDERED: PRED5TAB48 PO (08:37)
[2023-06-10] MEDS ORDERED: AMOX-430 PO (08:37)
[2023-06-10] MEDS ORDERED: IPRA3AMP23 IH (08:39)
== END 2023-06-10 19:00 | disposition home health service (06) | DRG 140 ==
LOC: ER 14:46 → MED 15:00 → UNDOADMIN 19:57 → TELE-TD 19:57 → TELE1 20:28 → TELE-TD 20:28 → UNDODISIN 06-10 12:55
PROVIDERS: ADMIT Internal Medicine; ATTEND Internal Medicine
DX: J44.1 Chronic obstructive pulmonary disease with (acute) exacerbation (principal); I11.0 Hypertensive heart disease with heart failure; I50.9 Heart failure, unspecified; F32.A Depression, unspecified; F41.9 Anxiety disorder, unspecified; G40.909 Epilepsy, unspecified, not intractable, without status epilepticus; I48.91 Unspecified atrial fibrillation; Z79.01 Long term (current) use of anticoagulants; K21.9 Gastro-esophageal reflux disease without esophagitis; G89.29 Other chronic pain; Z88.2 Allergy status to sulfonamides; Z88.8 Allergy status to other drugs, medicaments and biological substances; Z60.2 Problems related to living alone; Z79.899 Other long term (current) drug therapy; Z20.822 Contact with and (suspected) exposure to COVID-19; Z79.51 Long term (current) use of inhaled steroids; I49.9 Cardiac arrhythmia, unspecified; Z72.0 Tobacco use; R11.2 Nausea with vomiting, unspecified
CPT/HCPCS: 36415; 70220-TC; 71045-TC; 80048-TC; 80076-TC; 83880; 84484-TC; 85025-TC; 93970-TC; 94799-TC; 97116-TC; 97530-TC; A4223; G0378; J1650; J2920; J3475; J7030

== ENCOUNTER 2023-06-15 23:43 | Emergency (ER) | payer MEDICAID ==
[~2023-06-15] VITALS: Ht 160 cm; Wt 63.0 kg
[~2023-06-15 23:43] MED LIST changes: +ALBU2.5V38 IH; +ALBU8.5H8 IH; -ALBU8.5H8 INH; +ALPR0.25 PO; -AMLO-212 PO; +AMOX-430 PO; -APIX5TAB PO; +BENZ1TAB7 PO; +BUPR8TAB4 SL; -BUSP5TAB3 PO; +CETI-467 PO; -DIAZ5TAB4 PO; +FLUT1DIS3 IH; +HYDR-500 PO; +HYDR25TA4 PO; +IPRA12.9 IH; +IPRA3AMP23 IH; -LEVE100023 PO; +PALI6TAB PO; -PRED50TA PO; +PRED5TAB48 PO
[2023-06-15 23:45] VITALS: TEMP 97.9
[2023-06-16] MEDS ORDERED: IPRATROPIUM NEB FS 0.5 MG/2.5 ML AMPUL.NEB NEB ONE
[2023-06-16] MEDS ORDERED: dexaMETHasone SOD PHOSPHATE 4 MG/ML VIAL IV ONE
[2023-06-16] MEDS ORDERED: IPRATROPIUM NEB FS 0.5 MG/2.5 ML AMPUL.NEB ONE (00:11)
[2023-06-16] MEDS ORDERED: ALBUTEROL FS 2.5 MG/0.5 ML VIAL.NEB ONE ×2 (00:11→00:59)
[2023-06-16 00:16] VITALS: O2SAT 99
[2023-06-16] MEDS ORDERED: dexaMETHasone SOD PHOSPHATE 10 MG/ML VIAL ONE (00:19)
[2023-06-16 00:26] VITALS: O2SAT 99
[2023-06-16] MEDS ORDERED: ALBUTEROL FS 2.5 MG/0.5 ML VIAL.NEB NEB ONE ×2 (01:00)
[2023-06-16 01:02] VITALS: O2SAT 99
[2023-06-16 01:15] VITALS: O2SAT 100
[2023-06-16 01:56] VITALS: BP 112/80; O2SAT 100
== END 2023-06-16 02:11 | disposition home or self-care (01) ==
LOC: ER 23:45
DX: J98.01 Acute bronchospasm (principal); G40.909 Epilepsy, unspecified, not intractable, without status epilepticus; I10 Essential (primary) hypertension; J44.9 Chronic obstructive pulmonary disease, unspecified; K21.9 Gastro-esophageal reflux disease without esophagitis; F17.200 Nicotine dependence, unspecified, uncomplicated; Z79.899 Other long term (current) drug therapy; Z98.890 Other specified postprocedural states; Z88.2 Allergy status to sulfonamides; Z88.1 Allergy status to other antibiotic agents
CPT/HCPCS: 99285; 96374; 94640 ×2; J1100

== ENCOUNTER 2023-07-04 16:38 | Inpatient (IN) | payer MEDICAID ==
[~2023-07-04] VITALS: Ht 162.6 cm; Wt 68.0 kg
[2023-07-04 18:26] LABS: BASOPHILS # (AUTO) 0.1 K/uL (0.0-0.2); BASOPHILS % (AUTO) 0.9 % (0.0-2.0); EOSINOPHILS # (AUTO) 0.1 K/uL (0.0-0.7); EOSINOPHILS % (AUTO) 1.9 % (0.0-6.0); HEMATOCRIT 39 % (33-45); HEMOGLOBIN 13.3 g/dL (11.5-14.8); LYMPHOCYTES # (AUTO) 1.8 K/uL (0.8-4.8); LYMPHOCYTES % (AUTO) 25.4 % (20.0-44.0); MEAN CORPUSCULAR HEMOGLOBIN 34 PG (26.0-33.0); MEAN CORPUSCULAR HGB CONC 34 g/dl (31.0-36.0); MEAN CORPUSCULAR VOLUME 99 fL (82-100); MONOCYTES # (AUTO) 0.7 K/uL (0.1-1.30); MONOCYTES % (AUTO) 10.1 % (2.0-12.0); NEUTROPHILS # (AUTO) 4.4 K/uL (1.8-8.9); NEUTROPHILS % (AUTO) 61.7 % (43.0-81.0); PLATELET COUNT (AUTO) 165 K/uL (150-450); RED BLOOD CELL COUNT(AUTO) 3.93 MIL/uL (4.0-5.2); RED CELL DISTRIBUTION WIDTH 14.5 % (11.5-15.0); WHITE BLOOD COUNT (AUTO) 7.1 K/uL (4.3-11.0)
[2023-07-04 18:37] LABS: CALCIUM, SERUM 8.6 mg/dL (8.5-10.1); CARBON DIOXIDE 26 mmol/L (21-32); CHLORIDE 103 mmol/L (98-107); CREATININE 0.9 mg/dL (0.6-1.3); GLUCOSE 224 mg/dL (74-106); POTASSIUM 3.2 mmol/L (3.5-5.1); SODIUM SERUM 138 mmol/L (136-145); UREA NITROGEN, BLOOD 22 mg/dL (7-18)
[2023-07-04 18:39] LABS: INR 1.02 (0.91-1.10); PARTIAL THROMBOPLASTIN TIME 25.1 SEC (24.3-34.3); PROTHROMBIN TIME 10.8 SECS (9.2-11.1)
[2023-07-04 18:48] LABS: ALANINE AMINOTRANSFERASE 50 U/L (12-78); ALBUMIN 2.9 g/dL (3.4-5.0); ALKALINE PHOSPHATASE 79 U/L (46-116); ASPARTATE AMINOTRANSFERASE 39 U/L (15-37); BILIRUBIN,DIRECT 0.4 mg/dL (0.0-0.2); BILIRUBIN,TOTAL 0.7 mg/dL (0.2-1.0); NT-PRO BNP 40 pg/mL (0-125); TOTAL PROTEIN, SERUM 5.8 g/dL (6.4-8.2)
[2023-07-04 18:57] LABS: LACTIC ACID 2.3 mmol/L (0.4-2.0)
[2023-07-04] MEDS ORDERED: ALBUTEROL FS 2.5 MG/3 ML VIAL.NEB NEB ONE (19:00)
[2023-07-04] MEDS ORDERED: IPRATROPIUM NEB FS 0.5 MG/2.5 ML AMPUL.NEB NEB ONE (19:00)
[2023-07-04 19:06] LABS: BAND % (MANUAL) 1 % (0.0-5.0); EOSINOPHILS % (MANUAL) 1 % (0-4); LYMPHOCYTES % (MANUAL) 22 % (16-48); MONOCYTES % (MANUAL) 9 % (0-11.0); NEUTROPHILS % (MANUAL) 64 (42-76); REACTIVE LYMPHOCYTES 3 % (0-0)
[2023-07-04 19:07] LABS: ANISOCYTOSIS 1+; PLATELET ESTIMATE ADEQU
[2023-07-04] MEDS ORDERED: NICO-676 TD (19:13)
[2023-07-04] MEDS ORDERED: IPRA12.9 IH (19:13)
[2023-07-04] MEDS ORDERED: DIAZ5TAB4 PO (19:13)
[2023-07-04] MEDS ORDERED: IPRATROPIUM NEB FS 0.5 MG/2.5 ML AMPUL.NEB ONE (19:18)
[2023-07-04] MEDS ORDERED: ALBUTEROL FS 2.5 MG/3 ML VIAL.NEB ONE (19:18)
[2023-07-04 19:20] VITALS: O2SAT 98
[2023-07-04 19:30] VITALS: O2SAT 100
[2023-07-04 19:35] VITALS: O2SAT 99
[2023-07-04 19:45] VITALS: O2SAT 100
[2023-07-04] MEDS ORDERED: methylPREDNISolone SOD SUCC 125 MG/2ML VIAL IV ONE (20:00)
[2023-07-04] MEDS ORDERED: methylPREDNISolone SOD SUCC 125 MG/2ML VIAL ONE (20:01)
[2023-07-04] MEDS ORDERED: ACETAMINOPHEN ES 500 MG TABLET ONE (20:07)
[2023-07-04] MEDS ORDERED: ACETAMINOPHEN ES 500 MG TABLET PO ONE (20:30)
[2023-07-04 21:45] VITALS: BP 142/72; TEMP 97.3; O2SAT 100
[2023-07-04] MEDS ORDERED: Potassium Chloride 10 MEQ in IV NS 0.9% 1,000 ML IV SCH (22:30)
[2023-07-04] MEDS ORDERED: POTASSIUM CHLORIDE 20 MEQ TAB.PRT.SR PO ONE ×2 (22:30→23:14)
[2023-07-04] MEDS ORDERED: ACETAMINOPHEN 650 MG/20.3 ML UDC PO PRN (22:30)
[2023-07-04] MEDS ORDERED: DIAZEPAM 5 MG TABLET PO PRN (22:30)
[2023-07-04] MEDS ORDERED: IPRATROPIUM NEB FS 0.5 MG/2.5 ML AMPUL.NEB NEB PRN (22:30)
[2023-07-04] MEDS ORDERED: ALBUTEROL FS 2.5 MG/3 ML VIAL.NEB NEB PRN (23:00)
[2023-07-04] MEDS ORDERED: LEVOFLOXACIN 500 MG /D5W 100ML 0 ML IV ONE (23:02)
[2023-07-04] MEDS ORDERED: LEVOFLOXACIN 500 MG /D5W 100ML 100 ML IV ONE (23:17)
[2023-07-04] MEDS: LEVOFLOXACIN 500 MG /D5W 100ML 500 MG in PREMIX 1 EA IV SCH (23:20)
[2023-07-05] VITALS (13 sets, daily range): BP systolic 128–149; BP diastolic 65–83; TEMP 97.9–98.1; O2SAT 96–100
[2023-07-05 00:19] LABS: ABG BASE EXCESS 1.5 mmol/L; ABG OXYGEN SATURATION 98.9 % (92.0-98.5); ABG PCO2 39.8 mmHg (35.0-45.0); ABG PO2 156.5 mmHg (75.0-100.0); ABG TOTAL HEMOGLOBIN 13.7 G/dL (12.0-16.0); COHb 0.9 % (0.5-1.5); MetHb 0.2 % (0.0-1.5); O2Hb 97.8 % (94.0-97.0); SITE, ABG Right Radial; VENT MODE, BG NASAL CANNULA
[2023-07-05] MEDS: ALBUTEROL FS 2.5 MG/3 ML VIAL.NEB NEB SCH ×4 (00:30→20:16)
[2023-07-05] MEDS: IPRATROPIUM NEB FS 0.5 MG/2.5 ML AMPUL.NEB NEB SCH ×4 (00:30→20:16)
[2023-07-05] MEDS ORDERED: IV PREMIX NS +20MEQ KCL 1 L IV ONE (01:34)
[2023-07-05] MEDS: Potassium Chloride 20 MEQ in IV NS 0.9% 1,000 ML IV SCH ×2 (02:07→15:10)
[2023-07-05 05:49] LABS: BASOPHILS % (AUTO) 0.3 % (0.0-2.0); EOSINOPHILS % (AUTO) 0.1 % (0.0-6.0); HEMATOCRIT 38 % (33-45); HEMOGLOBIN 13.1 g/dL (11.5-14.8); LYMPHOCYTES # (AUTO) 0.4 K/uL (0.8-4.8); LYMPHOCYTES % (AUTO) 7.4 % (20.0-44.0); MEAN CORPUSCULAR HEMOGLOBIN 34 PG (26.0-33.0); MEAN CORPUSCULAR HGB CONC 35 g/dl (31.0-36.0); MEAN CORPUSCULAR VOLUME 99 fL (82-100); MONOCYTES # (AUTO) 0.1 K/uL (0.1-1.30); MONOCYTES % (AUTO) 1.2 % (2.0-12.0); PLATELET COUNT (AUTO) 131 K/uL (150-450); RED BLOOD CELL COUNT(AUTO) 3.83 MIL/uL (4.0-5.2); RED CELL DISTRIBUTION WIDTH 13.5 % (11.5-15.0); WHITE BLOOD COUNT (AUTO) 5.5 K/uL (4.3-11.0)
[2023-07-05] MEDS: methylPREDNISolone SOD SUCC 40 MG/ML VIAL IV SCH ×3 (05:52→20:39)
[2023-07-05 05:53] LABS: CREATININE 1.1 mg/dL (0.6-1.3); POTASSIUM 4.5 mmol/L (3.5-5.1)
[2023-07-05 06:08] LABS: THYROID STIMULATING HORMONE 0.802 uIU/mL (0.358-3.74)
[2023-07-05] MEDS: NICOTINE PATCH (7MG) 7 MG PATCH.TD24 TD SCH (08:07)
[2023-07-05] MEDS: BENZTROPINE MESYLATE (1 MG) 1 MG TABLET PO SCH ×2 (08:07→16:27)
[2023-07-05] MEDS: FLUTICASONE/VILANTEROL 1 EACH BLST.W.DEV IH SCH (08:09)
[2023-07-05 08:13] LABS: EOSINOPHILS % (MANUAL) 1 % (0-4); LYMPHOCYTES % (MANUAL) 9 % (16-48); MONOCYTES % (MANUAL) 3 % (0-11.0); NEUTROPHILS % (MANUAL) 87 (42-76); PLATELET ESTIMATE DECREASED
[2023-07-05 08:14] LABS: ANISOCYTOSIS 1+
[2023-07-05] MEDS ORDERED: PALIPERIDONE 6 MG PO SCH (09:00)
[2023-07-05] MEDS: ENOXAPARIN SODIUM 40 MG/0.4 ML DISP.SYRIN SQ SCH (09:10)
[2023-07-05] MEDS: PANTOPRAZOLE 40 MG TABLET.DR PO SCH (09:11)
[2023-07-05] MEDS ORDERED: ONDANSETRON HCL/PF 4 MG/2 ML VIAL IV PRN (15:30)
[2023-07-05] MEDS: IV 1/2NS 1000 ML 1,000 ML IV PRN (16:01)
[2023-07-05] MEDS: HYDROCODONE/APAP 5/325MG TABLET PO PRN (20:38)
[2023-07-05] MEDS: hydrOXYzine HCL SYRUP 10 MG/5 ML UDC PO SCH (23:00)
[2023-07-05] MEDS: LEVOFLOXACIN 500 MG /D5W 100ML 500 MG in PREMIX 1 EA IV SCH (23:01)
[2023-07-06] VITALS (14 sets, daily range): BP systolic 121–158; BP diastolic 65–88; TEMP 98.4–99.3; O2SAT 95–100
[2023-07-06] MEDS: ALBUTEROL FS 2.5 MG/3 ML VIAL.NEB NEB SCH ×4 (01:39→19:28)
[2023-07-06] MEDS: IPRATROPIUM NEB FS 0.5 MG/2.5 ML AMPUL.NEB NEB SCH ×4 (01:39→19:28)
[2023-07-06] MEDS: methylPREDNISolone SOD SUCC 40 MG/ML VIAL IV SCH ×3 (05:09→21:23)
[2023-07-06] MEDS: IV 1/2NS 1000 ML 1,000 ML IV PRN (05:26)
[2023-07-06 06:26] LABS: BASOPHILS % (AUTO) 0.1 % (0.0-2.0); HEMATOCRIT 36 % (33-45); HEMOGLOBIN 12.1 g/dL (11.5-14.8); LYMPHOCYTES # (AUTO) 0.6 K/uL (0.8-4.8); LYMPHOCYTES % (AUTO) 3.8 % (20.0-44.0); MEAN CORPUSCULAR HEMOGLOBIN 34 PG (26.0-33.0); MEAN CORPUSCULAR HGB CONC 34 g/dl (31.0-36.0); MEAN CORPUSCULAR VOLUME 100 fL (82-100); MONOCYTES # (AUTO) 0.6 K/uL (0.1-1.30); MONOCYTES % (AUTO) 3.7 % (2.0-12.0); NEUTROPHILS # (AUTO) 15.4 K/uL (1.8-8.9); NEUTROPHILS % (AUTO) 92.4 % (43.0-81.0); PLATELET COUNT (AUTO) 154 K/uL (150-450); RED CELL DISTRIBUTION WIDTH 13.3 % (11.5-15.0); WHITE BLOOD COUNT (AUTO) 16.6 K/uL (4.3-11.0)
[2023-07-06 06:28] LABS: CREATININE 0.7 mg/dL (0.6-1.3); POTASSIUM 4.5 mmol/L (3.5-5.1)
[2023-07-06] MEDS: PANTOPRAZOLE 40 MG TABLET.DR PO SCH ×3 (08:07→16:27)
[2023-07-06] MEDS: HYDROCODONE/APAP 5/325MG TABLET PO PRN ×2 (08:07→14:50)
[2023-07-06] MEDS: BENZTROPINE MESYLATE (1 MG) 1 MG TABLET PO SCH ×2 (09:26→16:27)
[2023-07-06] MEDS: NICOTINE PATCH (7MG) 7 MG PATCH.TD24 TD SCH (09:26)
[2023-07-06] MEDS: ENOXAPARIN SODIUM 40 MG/0.4 ML DISP.SYRIN SQ SCH (09:27)
[2023-07-06] MEDS: FLUTICASONE/VILANTEROL 1 EACH BLST.W.DEV IH SCH (09:28)
[2023-07-06 09:44] LABS: LACTIC ACID 3.3 mmol/L (0.4-2.0)
[2023-07-06] MEDS: LEVOFLOXACIN (250MG) 250 MG TABLET PO SCH (10:00)
[2023-07-06 12:39] LABS: BILIRUBIN,DIRECT 0.3 mg/dL (0.0-0.2); BILIRUBIN,TOTAL 0.5 mg/dL (0.2-1.0)
[2023-07-06 12:45] LABS: LACTIC ACID REFLEX 3.5 mmol/L (0.4-1.9)
[2023-07-06] MEDS: hydrOXYzine HCL SYRUP 10 MG/5 ML UDC PO SCH (21:23)
[2023-07-07] VITALS (14 sets, daily range): BP systolic 131–156; BP diastolic 52–79; TEMP 97.5–99; O2SAT 95–99
[2023-07-07] MEDS: IV 1/2NS 1000 ML 1,000 ML IV PRN (01:30)
[2023-07-07] MEDS: ALBUTEROL FS 2.5 MG/3 ML VIAL.NEB NEB SCH ×3 (01:44→13:56)
[2023-07-07] MEDS: IPRATROPIUM NEB FS 0.5 MG/2.5 ML AMPUL.NEB NEB SCH ×4 (01:44→20:19)
[2023-07-07] MEDS: methylPREDNISolone SOD SUCC 40 MG/ML VIAL IV SCH ×2 (05:31→13:19)
[2023-07-07 06:46] LABS: ALBUMIN 2.8 g/dL (3.4-5.0); BILIRUBIN,TOTAL 0.6 mg/dL (0.2-1.0); CREATININE 0.9 mg/dL (0.6-1.3); POTASSIUM 4.2 mmol/L (3.5-5.1); TOTAL PROTEIN, SERUM 5.6 g/dL (6.4-8.2)
[2023-07-07 06:50] LABS: HEMATOCRIT 35 % (33-45); HEMOGLOBIN 11.8 g/dL (11.5-14.8); LYMPHOCYTES % (AUTO) 7.5 % (20.0-44.0); MEAN CORPUSCULAR HEMOGLOBIN 34 PG (26.0-33.0); MEAN CORPUSCULAR HGB CONC 34 g/dl (31.0-36.0); MEAN CORPUSCULAR VOLUME 99 fL (82-100); MONOCYTES # (AUTO) 0.7 K/uL (0.1-1.30); MONOCYTES % (AUTO) 5.2 % (2.0-12.0); NEUTROPHILS # (AUTO) 11.7 K/uL (1.8-8.9); NEUTROPHILS % (AUTO) 87.3 % (43.0-81.0); PLATELET COUNT (AUTO) 155 K/uL (150-450); RED BLOOD CELL COUNT(AUTO) 3.47 MIL/uL (4.0-5.2); RED CELL DISTRIBUTION WIDTH 13.4 % (11.5-15.0); WHITE BLOOD COUNT (AUTO) 13.4 K/uL (4.3-11.0)
[2023-07-07 07:00] LABS: LACTIC ACID 2.5 mmol/L (0.4-2.0)
[2023-07-07] MEDS ORDERED: PANT40TA2 PO (09:19)
[2023-07-07] MEDS ORDERED: LEVO500T90 PO (09:19)
[2023-07-07] MEDS: LEVOFLOXACIN (250MG) 250 MG TABLET PO SCH (09:19)
[2023-07-07] MEDS ORDERED: PRED5TAB48 PO (09:19)
[2023-07-07] MEDS: PANTOPRAZOLE 40 MG TABLET.DR PO SCH ×2 (09:20→17:21)
[2023-07-07] MEDS: BENZTROPINE MESYLATE (1 MG) 1 MG TABLET PO SCH ×2 (09:20→17:21)
[2023-07-07] MEDS: FLUTICASONE/VILANTEROL 1 EACH BLST.W.DEV IH SCH (09:21)
[2023-07-07] MEDS: NICOTINE PATCH (7MG) 7 MG PATCH.TD24 TD SCH (09:23)
[2023-07-07] MEDS: ENOXAPARIN SODIUM 40 MG/0.4 ML DISP.SYRIN SQ SCH (09:30)
[2023-07-07 11:22] LABS: LACTIC ACID 3.5 mmol/L (0.4-2.0)
[2023-07-07] MEDS: hydrOXYzine HCL SYRUP 10 MG/5 ML UDC PO SCH (21:31)
[2023-07-08] VITALS (9 sets, daily range): BP systolic 129–152; BP diastolic 57–89; TEMP 98.1–98.5; O2SAT 95–100
[2023-07-08] MEDS: IPRATROPIUM NEB FS 0.5 MG/2.5 ML AMPUL.NEB NEB SCH ×3 (01:28→13:12)
[2023-07-08] MEDS: IV 1/2NS 1000 ML 1,000 ML IV PRN (06:22)
[2023-07-08] MEDS: PANTOPRAZOLE 40 MG TABLET.DR PO SCH (09:25)
[2023-07-08] MEDS: LEVOFLOXACIN (250MG) 250 MG TABLET PO SCH (09:25)
[2023-07-08] MEDS: NICOTINE PATCH (7MG) 7 MG PATCH.TD24 TD SCH (09:25)
[2023-07-08] MEDS: FLUTICASONE/VILANTEROL 1 EACH BLST.W.DEV IH SCH (09:26)
[2023-07-08] MEDS: BENZTROPINE MESYLATE (1 MG) 1 MG TABLET PO SCH (09:26)
[2023-07-08] MEDS: ENOXAPARIN SODIUM 40 MG/0.4 ML DISP.SYRIN SQ SCH (09:28)
== END 2023-07-08 18:30 | disposition home or self-care (01) | DRG 140 ==
LOC: ER 17:18 → TELE 21:36
PROVIDERS: ADMIT Internal Medicine; ATTEND Internal Medicine
DX: J44.1 Chronic obstructive pulmonary disease with (acute) exacerbation (principal); E87.20 Acidosis, unspecified; F41.9 Anxiety disorder, unspecified; G40.909 Epilepsy, unspecified, not intractable, without status epilepticus; I10 Essential (primary) hypertension; K21.9 Gastro-esophageal reflux disease without esophagitis; R73.9 Hyperglycemia, unspecified; F17.210 Nicotine dependence, cigarettes, uncomplicated; T38.0X5A Adverse effect of glucocorticoids and synthetic analogues, initial encounter; Y92.230 Patient room in hospital as the place of occurrence of the external cause
CPT/HCPCS: 36415; 36600; 71045-TC; 80048-TC; 80053-TC; 80061-TC; 80076-TC; 82247-TC; 82248-TC; 82803-TC; 83605-TC; 83880; 84443-TC; 84484-TC; 85025-TC; 85730-TC; 93307-TC; 94799-TC; 97110-TC; 97116-TC; 97530-TC; A4216; A4223; G0378; J1650; J1956; J2405; J2920; J2930; J3480; J3490; J7030; J7050; Q0177

== ENCOUNTER 2023-08-05 13:49 | Inpatient (IN) | payer MEDICAID ==
[~2023-08-05] VITALS: Ht 162.6 cm; Wt 77.1 kg
[~2023-08-05 13:49] MED LIST changes: -ALBU2.5V38 IH; -ALBU8.5H8 IH; -ALPR0.25 PO; -AMOX-430 PO; -BUPR8TAB4 SL; -CETI-467 PO; +DIAZ5TAB4 PO; -HYDR25TA4 PO; -IPRA3AMP23 IH; +LEVO500T90 PO; +PANT40TA2 PO
[2023-08-05] MEDS ORDERED: NITROGLYCERIN PACKET 1 GM PACKET TD ONE (14:00)
[2023-08-05] MEDS ORDERED: NITROGLYCERIN 0.4 MG/TAB BOTTLE SL PRN (14:00)
[2023-08-05] MEDS ORDERED: FUROSEMIDE 40 MG/4 ML VIAL IV ONE (14:00)
[2023-08-05] MEDS ORDERED: FUROSEMIDE 40 MG/4 ML VIAL ONE (14:06)
[2023-08-05] MEDS ORDERED: NITROGLYCERIN PACKET 1 GM PACKET ONE (14:07)
[2023-08-05] MEDS ORDERED: NITROGLYCERIN 0.4 MG/TAB BOTTLE ONE (14:07)
[2023-08-05 14:09] LABS: BASOPHILS % (AUTO) 0.5 % (0.0-2.0); EOSINOPHILS # (AUTO) 0.1 K/uL (0.0-0.7); EOSINOPHILS % (AUTO) 0.6 % (0.0-6.0); HEMATOCRIT 45 % (33-45); HEMOGLOBIN 14.9 g/dL (11.5-14.8); LYMPHOCYTES # (AUTO) 1.9 K/uL (0.8-4.8); LYMPHOCYTES % (AUTO) 20.3 % (20.0-44.0); MEAN CORPUSCULAR HEMOGLOBIN 33 PG (26.0-33.0); MEAN CORPUSCULAR HGB CONC 34 g/dl (31.0-36.0); MEAN CORPUSCULAR VOLUME 100 fL (82-100); MONOCYTES # (AUTO) 0.8 K/uL (0.1-1.30); MONOCYTES % (AUTO) 8.7 % (2.0-12.0); NEUTROPHILS # (AUTO) 6.5 K/uL (1.8-8.9); NEUTROPHILS % (AUTO) 69.9 % (43.0-81.0); PLATELET COUNT (AUTO) 170 K/uL (150-450); RED BLOOD CELL COUNT(AUTO) 4.47 MIL/uL (4.0-5.2); RED CELL DISTRIBUTION WIDTH 13.1 % (11.5-15.0); WHITE BLOOD COUNT (AUTO) 9.3 K/uL (4.3-11.0)
[2023-08-05 14:22] LABS: CALCIUM, SERUM 9.4 mg/dL (8.5-10.1); CARBON DIOXIDE 29 mmol/L (21-32); CHLORIDE 104 mmol/L (98-107); CREATININE 0.9 mg/dL (0.6-1.3); GLUCOSE 177 mg/dL (74-106); SODIUM SERUM 143 mmol/L (136-145); UREA NITROGEN, BLOOD 16 mg/dL (7-18)
[2023-08-05] MEDS ORDERED: ALBUTEROL FS 2.5 MG/3 ML VIAL.NEB NEB ONE (14:30)
[2023-08-05] MEDS ORDERED: IPRATROPIUM NEB FS 0.5 MG/2.5 ML AMPUL.NEB NEB ONE (14:30)
[2023-08-05] MEDS ORDERED: methylPREDNISolone SOD SUCC 125 MG/2ML VIAL IV ONE (14:30)
[2023-08-05] MEDS ORDERED: methylPREDNISolone SOD SUCC 125 MG/2ML VIAL ONE (14:31)
[2023-08-05] MEDS ORDERED: ALBUTEROL FS 2.5 MG/0.5 ML VIAL.NEB ONE ×2 (14:33→20:41)
[2023-08-05] MEDS ORDERED: IPRATROPIUM NEB FS 0.5 MG/2.5 ML AMPUL.NEB ONE ×2 (14:33→20:41)
[2023-08-05 14:36] LABS: ALANINE AMINOTRANSFERASE 40 U/L (12-78); ALBUMIN 3.9 g/dL (3.4-5.0); ALKALINE PHOSPHATASE 87 U/L (46-116); ASPARTATE AMINOTRANSFERASE 45 U/L (15-37); BILIRUBIN,DIRECT 0.4 mg/dL (0.0-0.2); BILIRUBIN,TOTAL 0.8 mg/dL (0.2-1.0); NT-PRO BNP 728 pg/mL (0-125); TOTAL PROTEIN, SERUM 7.4 g/dL (6.4-8.2)
[2023-08-05 14:47] LABS: ABG BASE EXCESS 1.5 mmol/L; ABG OXYGEN SATURATION 99.8 % (92.0-98.5); ABG PCO2 42.9 mmHg (35.0-45.0); ABG PH 7.408 (7.350-7.450); ABG PO2 576.6 mmHg (75.0-100.0); ABG TOTAL HEMOGLOBIN 14.2 G/dL (12.0-16.0); COHb 1.3 % (0.5-1.5); MetHb 0.4 % (0.0-1.5); O2Hb 98.1 % (94.0-97.0); SITE, ABG Right Radial
[2023-08-05 15:01] LABS: LACTIC ACID 3.6 mmol/L (0.4-2.0)
[2023-08-05] MEDS ORDERED: ALBUTEROL FS 2.5 MG/0.5 ML VIAL.NEB NEB PRN (18:30)
[2023-08-05] MEDS ORDERED: ALBUTEROL FS 2.5 MG/0.5 ML VIAL.NEB NEB SCH (18:30)
[2023-08-05] MEDS ORDERED: IPRATROPIUM NEB FS 0.5 MG/2.5 ML AMPUL.NEB NEB SCH (18:30)
[2023-08-05] MEDS: methylPREDNISolone SOD SUCC 40 MG/ML VIAL IV SCH (19:26)
[2023-08-05] MEDS: AZITHROMYCIN 250 MG TABLET PO SCH (19:27)
[2023-08-05 20:30] VITALS: O2SAT 95
[2023-08-05 20:45] VITALS: O2SAT 99
[2023-08-05] MEDS ORDERED: DIAZEPAM 5 MG TABLET PO SCH (22:00)
[2023-08-05] MEDS ORDERED: DIAZEPAM 5 MG TABLET PO PRN (22:00)
[2023-08-06] VITALS (13 sets, daily range): BP systolic 120–147; BP diastolic 64–98; TEMP 97.5–98.5; O2SAT 95–100
[2023-08-06] MEDS: methylPREDNISolone SOD SUCC 40 MG/ML VIAL IV SCH ×4 (02:13→17:43)
[2023-08-06] MEDS: ALBUTEROL FS 2.5 MG/0.5 ML VIAL.NEB NEB SCH ×4 (02:32→20:02)
[2023-08-06] MEDS: IPRATROPIUM NEB FS 0.5 MG/2.5 ML AMPUL.NEB NEB SCH ×4 (02:33→20:02)
[2023-08-06 06:37] LABS: BASOPHILS % (AUTO) 0.1 % (0.0-2.0); HEMATOCRIT 38 % (33-45); HEMOGLOBIN 13.4 g/dL (11.5-14.8); LYMPHOCYTES # (AUTO) 0.8 K/uL (0.8-4.8); LYMPHOCYTES % (AUTO) 8.3 % (20.0-44.0); MEAN CORPUSCULAR HEMOGLOBIN 35 PG (26.0-33.0); MEAN CORPUSCULAR HGB CONC 35 g/dl (31.0-36.0); MEAN CORPUSCULAR VOLUME 98 fL (82-100); MONOCYTES # (AUTO) 0.3 K/uL (0.1-1.30); MONOCYTES % (AUTO) 3.5 % (2.0-12.0); NEUTROPHILS # (AUTO) 8.1 K/uL (1.8-8.9); NEUTROPHILS % (AUTO) 88.1 % (43.0-81.0); PLATELET COUNT (AUTO) 175 K/uL (150-450); RED BLOOD CELL COUNT(AUTO) 3.85 MIL/uL (4.0-5.2); RED CELL DISTRIBUTION WIDTH 12.6 % (11.5-15.0); WHITE BLOOD COUNT (AUTO) 9.1 K/uL (4.3-11.0)
[2023-08-06 06:48] LABS: CALCIUM, SERUM 9.5 mg/dL (8.5-10.1); CREATININE 0.7 mg/dL (0.6-1.3)
[2023-08-06 06:54] LABS: LACTIC ACID 1.4 mmol/L (0.4-2.0)
[2023-08-06] MEDS: AZITHROMYCIN 250 MG TABLET PO SCH (08:10)
[2023-08-06] MEDS: PANTOPRAZOLE 40 MG TABLET.DR PO SCH (08:10)
[2023-08-06] MEDS: BENZTROPINE MESYLATE (1 MG) 1 MG TABLET PO SCH ×2 (08:10→17:43)
[2023-08-06] MEDS ORDERED: PALIPERIDONE 6 MG PO SCH (09:00)
[2023-08-06] MEDS ORDERED: PRED10TA PO (11:28)
[2023-08-06] MEDS ORDERED: AZIT500T PO (11:28)
[2023-08-06] MEDS ORDERED: hydrOXYzine 10 MG TABLET PO SCH (22:00)
[2023-08-07 01:36] VITALS: O2SAT 95
[2023-08-07] MEDS: ALBUTEROL FS 2.5 MG/0.5 ML VIAL.NEB NEB SCH ×2 (01:36→07:29)
[2023-08-07] MEDS: IPRATROPIUM NEB FS 0.5 MG/2.5 ML AMPUL.NEB NEB SCH ×2 (01:36→07:29)
[2023-08-07 01:51] VITALS: O2SAT 98
[2023-08-07] MEDS: methylPREDNISolone SOD SUCC 40 MG/ML VIAL IV SCH ×2 (01:53→07:10)
[2023-08-07 04:00] VITALS: BP 127/65; TEMP 97.5; O2SAT 99
[2023-08-07 07:29] VITALS: O2SAT 96
[2023-08-07 07:42] VITALS: O2SAT 100
[2023-08-07] MEDS: PANTOPRAZOLE 40 MG TABLET.DR PO SCH (07:57)
[2023-08-07 08:00] VITALS: BP 138/84; TEMP 97.5; O2SAT 99
[2023-08-07] MEDS: AZITHROMYCIN 250 MG TABLET PO SCH (09:59)
[2023-08-07] MEDS: BENZTROPINE MESYLATE (1 MG) 1 MG TABLET PO SCH (09:59)
== END 2023-08-07 10:47 | disposition home or self-care (01) | DRG 140 ==
LOC: ER 13:52 → MEDSG1 08-06 00:27
PROVIDERS: ADMIT Internal Medicine; ATTEND Internal Medicine
PROC: 5A09357 Assistance with Respiratory Ventilation, Less than 24 Consecutive Hours, Continuous Positive Airway Pressure (ICD-10-PCS; principal; 2023-08-06)
DX: J44.1 Chronic obstructive pulmonary disease with (acute) exacerbation (principal); J96.01 Acute respiratory failure with hypoxia; G40.909 Epilepsy, unspecified, not intractable, without status epilepticus; Z79.01 Long term (current) use of anticoagulants; Z86.79 Personal history of other diseases of the circulatory system; K21.9 Gastro-esophageal reflux disease without esophagitis; G89.29 Other chronic pain; Z98.890 Other specified postprocedural states; Z88.2 Allergy status to sulfonamides; Z88.8 Allergy status to other drugs, medicaments and biological substances; Z79.51 Long term (current) use of inhaled steroids; Z79.899 Other long term (current) drug therapy; E87.20 Acidosis, unspecified; F41.9 Anxiety disorder, unspecified; I10 Essential (primary) hypertension; Z72.0 Tobacco use
CPT/HCPCS: 36415; 36600; 71045-TC; 80048-TC; 80076-TC; 82803-TC; 83605-TC; 83880; 84484-TC; 85025-TC; 87040-TC; 97116-TC; 97530-TC; G0378; J1940; J2920; J2930; Q0177